=== PATIENT | female | born 1945 | race Caucasian/White ===

== ENCOUNTER 2018-08-08 05:12 | Observation (INO) | payer MEDICARE, OTHER ==
[2018-08-08] MEDS: DEXAMETHASONE 1 MG TAB PO (05:00)
[2018-08-08] MEDS: CEFAZOLIN 2 GM/50 ML (PMX) 50 ML IVPB (05:00)
[2018-08-08] MEDS: GABAPENTIN 300 MG CAP PO ×2 (05:00→20:36)
[2018-08-08] MEDS: SOD CHLORIDE 0.9% 100 ML, TRANEXAMIC ACID 3,000 MG IRR (05:00)
[2018-08-08] MEDS ORDERED: PROPOFOL 100 ML (06:47)
[2018-08-08] MEDS ORDERED: POLYMYXIN/BACITRACIN 1L IRRIG (06:55)
[2018-08-08] MEDS ORDERED: ROCURONIUM 50 MG INJ (06:59)
[2018-08-08] MEDS ORDERED: DEXAMETHASONE 4 MG/ML 5 ML INJ (07:00)
[2018-08-08] MEDS ORDERED: ONDANSETRON 4 MG INJ (07:00)
[2018-08-08] MEDS ORDERED: LIDOCAINE 2% (SDV) 5 ML INJ (07:00)
[2018-08-08] MEDS ORDERED: CEFAZOLIN 1 GM INJ (07:00)
[2018-08-08] MEDS: TRANEXAMIC ACID 1,000 MG in DEXTROSE 5% 100 ML IVPB (07:20)
[2018-08-08] MEDS ORDERED: CA CHLORIDE 10% 10 ML SYRINGE (07:22)
[2018-08-08] MEDS ORDERED: THROMBIN 5000 UNIT VIAL (07:22)
[2018-08-08] MEDS: BUPIVACAINE 0.5% (SDV) 30 ML, morphine SULFATE (PF) 8 MG, EPINEPHrine 0.3 MG, KETOROLAC... IRR (07:40)
[2018-08-08] MEDS: POLYMYXIN/BACITRACIN 1L IRRIG IRR (07:40)
[2018-08-08] MEDS ORDERED: DIPHENHYDRAMINE 50 MG INJ IV ×2 (08:30→09:00)
[2018-08-08] MEDS ORDERED: ZOLPIDEM 5 MG TAB PO (08:30)
[2018-08-08] MEDS ORDERED: HYDROmorphONE 1 MG/ML SYG IV (08:30)
[2018-08-08] MEDS ORDERED: MAGNESIUM HYDROXIDE 30ML CUP PO (08:30)
[2018-08-08] MEDS ORDERED: oxyCODONE 5 MG TAB PO ×3 (08:30)
[2018-08-08] MEDS ORDERED: ONDANSETRON 4 MG INJ IV ×2 (08:30→09:00)
[2018-08-08] MEDS ORDERED: NACL 0.9% 3 ML SYG IV (08:30)
[2018-08-08] MEDS ORDERED: LABETALOL HCL 20MG INJ IV (09:00)
[2018-08-08] MEDS ORDERED: MEPERIDINE 25 MG INJ IV (09:00)
[2018-08-08] MEDS ORDERED: ALBUTEROL 0.083% (NEB) 2.5 MG/3 ML AMP HHN (09:00)
[2018-08-08] MEDS ORDERED: METOCLOPRAMIDE 10 MG INJ IV (09:00)
[2018-08-08] MEDS ORDERED: HYDROmorphONE 1 MG/5 ML IV SYRINGE IV ×3 (09:00)
[2018-08-08] MEDS ORDERED: EPHEDrine SULFATE 50 MG/5 ML SYG IV (09:00)
[2018-08-08] MEDS ORDERED: KETOROLAC 30 MG INJ IV (09:00)
[2018-08-08] MEDS ORDERED: MIDAZOLAM 1 MG/ML 2 ML INJ IV (09:00)
[2018-08-08] MEDS ORDERED: OXYCODONE/ACETAMINOPHEN (5/325) TAB PO ×2 (09:00)
[2018-08-08] MEDS ORDERED: FENTAnyl 50 MCG/ML VIAL IV ×3 (09:00)
[2018-08-08] MEDS ORDERED: hydrALAzine 20 MG INJ IV (09:00)
[2018-08-08] MEDS: CEFAZOLIN 1 GM/50 ML (PMX) 50 ML IVPB ×2 (09:26→18:33)
[2018-08-08] MEDS: ACETAMINOPHEN 1000MG/100ML IV 100 ML IVPB ×2 (09:30→18:10)
[2018-08-08] MEDS: LACTATED RINGER'S 1,000 ML IV ×2 (11:40→18:19)
[2018-08-08] MEDS: LOSARTAN 25 MG TAB PO (13:51)
[2018-08-08] MEDS: HYDROCHLOROTHIAZIDE 12.5 MG CAP PO (13:53)
[2018-08-08] MEDS: DEXAMETHASONE 2 MG TAB PO ×2 (13:57→18:06)
[2018-08-08] MEDS: ACYCLOVIR 400 MG TAB PO (13:57)
[2018-08-08] MEDS: SENNA/DOCUSATE NA (8.6MG/50MG) TAB PO ×2 (13:58→20:36)
[2018-08-08] MEDS: CYCLOSPORINE 0.05% OPH DROPERETTE BOTH EYES ×2 (13:59→21:00)
[2018-08-08] MEDS ORDERED: VITAMIN A & D 5 GM OINT PACKET TOP (14:04)
[2018-08-08] MEDS: ATORVASTATIN 20 MG TAB PO (20:36)
[2018-08-08] MEDS ORDERED: NON-FORMULARY/PATIENT OWN MED (Melatonin-Pyridoxine Hcl (Melatonin) 1 TAB) PO (21:00)
[2018-08-09] MEDS: DEXAMETHASONE 2 MG TAB PO ×2 (00:33→06:05)
[2018-08-09] MEDS: ACETAMINOPHEN 1000MG/100ML IV 100 ML IVPB (00:58)
[2018-08-09] MEDS: CEFAZOLIN 1 GM/50 ML (PMX) 50 ML IVPB (00:59)
[2018-08-09] MEDS: LACTATED RINGER'S 1,000 ML IV (04:19)
[2018-08-09] MEDS: PANTOPRAZOLE (EC) 40 MG TAB PO (06:04)
[2018-08-09] MEDS: ACYCLOVIR 400 MG TAB PO (09:00)
[2018-08-09] MEDS: ASPIRIN (EC) 325 MG TAB PO (09:00)
[2018-08-09] MEDS: CYCLOSPORINE 0.05% OPH DROPERETTE BOTH EYES (09:00)
[2018-08-09] MEDS: SENNA/DOCUSATE NA (8.6MG/50MG) TAB PO (09:01)
[2018-08-09] MEDS: LOSARTAN 25 MG TAB PO (09:01)
[2018-08-09] MEDS: HYDROCHLOROTHIAZIDE 12.5 MG CAP PO (09:01)
[2018-08-10] MEDS ORDERED: MAGNESIUM HYDROXIDE 30ML CUP PO (21:00)
== END 2018-08-09 11:35 | disposition home or self-care (01) ==
LOC: REC 05:12 → MS1 10:00 → REC 10:00 → MS1 10:00
DX: S76.212D Strain of adductor muscle, fascia and tendon of left thigh, subsequent encounter (principal); M70.62 Trochanteric bursitis, left hip; X58.XXXD Exposure to other specified factors, subsequent encounter
CPT/HCPCS: 27062; 72170; 86999; 97116; 97161; 97530